=== PATIENT | female | born 1955 | race Caucasian/White ===

== ENCOUNTER 2017-06-07 17:11 | Observation (INO) ==
[2017-06-07] MEDS ORDERED: DUONEB (A & A) INH ONE (17:53)
[2017-06-07] MEDS ORDERED: ASPIRIN PO STA (17:53)
--- NOTE | 2017-06-07 18:24 | Diag Imaging Result Doc PS360 ---
EXAM: CHEST-PORTABLE HISTORY: CP TECHNIQUE: AP portable upright at 1805 COMMENT: The inspiration is less optimal than on 08/25/2016. Otherwise has been no significant change. IMPRESSION: Poor inspiration. No acute disease. Electronically signed by Kerwin Aguayo 06/07/2017 6:22 PM
[2017-06-07 18:32] LABS: MANUAL DIFF NEEDED? NO
[2017-06-07 18:36] LABS: BASO% 0.6 % (0.0-0.8); HEMATOCRIT 37.3 % (37.0-47.0); HEMOGLOBIN 12.4 g/dL (12.0-16.0); IMM GRAN# 0.06 X1000 (0.0-0.04); IMM GRAN% 0.4 % (0.0-0.5); LYMPH# 1.88 X1000 (1.2-3.4); MCH 31.6 PG (27-31); MCHC 33.2 g/dL (33-37); MCV 94.9 FL (81-99); MONO# 0.81 X1000 (0.11-0.59); MONO% 4.7 % (1.7-9.3); MPV 10.8 FL (7.4-10.4); NEUT% 83.3 % (42.2-75.2); PLT 306 X1000 (130-400); RBC 3.93 XMIL (4.2-5.4)
[2017-06-07 18:46] LABS: INR 0.98; PROTIME 10.3 Seconds (9.2-11.7); PTT 26.9 Seconds (22.0-36.0)
[2017-06-07 18:56] LABS: AGAP 10; ALBUMIN 3.6 g/dL (3.5-5.0); ALKALINE PHOSPHATASE 78 U/L (32-104); BUN 9 mg/dL (8-22); CALCIUM 8.3 mg/dL (8.8-10.2); CHLORIDE 103 mmol/L (98-107); CK PROFILE 55 U/L (24-173); COSMO 286; GOT 10 U/L (10-30); GPT 10 U/L (10-36); MAGNESIUM 1.7 mg/dL (1.5-2.7); POTASSIUM 3.8 mmol/L (3.5-5.1); SODIUM 140 mmol/L (136-145); TCO2 27 mmol/L (25-35); TOTAL BILIRUBIN 0.24 mg/dL (0.20-1.00); TOTAL PROTEIN 6.2 g/dL (6.3-8.3)
[2017-06-07] MEDS ORDERED: ROCEPHIN 1 GM/NS 1 GM/50 ML IVPB IV ONE (19:37)
[2017-06-07] MEDS ORDERED: SOLU-MEDROL IV ONE (19:37)
--- NOTE | 2017-06-07 19:39 | PROVIDER DOCUMENTATION ---
This chart was entered by Janneth Avalos Scribe, acting as scribe for Jake Villalba MD. HPI-Chest Pain - General Stated Complaint: SOB/CHEST PAIN Time Seen by Provider: 06/07/17 17:53 Source: patient Allergies/Adverse Reactions: Patient Allergies Allergy/AdvReac Type Severity Reaction Status Date / Time phenytoin sodium * Allergy Severe Unknown Verified 03/13/17 15:12 [From Dilantin] phenytoin sodium extended * Allergy Severe Unknown Verified 03/13/17 15:12 [From Dilantin] baclofen Allergy Unknown Verified 03/13/17 15:12 sulfamethoxazole Allergy NAUSEA/VOMI Verified 03/13/17 15:12 [From Bactrim] TING trimethoprim [From Bactrim] Allergy NAUSEA/VOMI Verified 03/13/17 15:12 TING Home Medications: Home Medication List Medication Instructions Recorded Confirmed Last Taken Type Estradiol 1 mg PO DAILY 04/18/14 03/13/17 08/25/16 History Furosemide 40 mg PO BID 04/18/14 03/13/17 08/25/16 History Insulin Lispro Protamin/Lispro 34 units SQ BID 04/18/14 03/13/17 08/24/16 History [Humalog Mix 75-25 Vial] Pregabalin [Lyrica] 150 mg PO TID 04/18/14 03/13/17 08/25/16 History Theophylline E.r. [Homero-Dur] 300 mg PO BID 04/18/14 03/13/17 08/25/16 History Tramadol HCl 50 mg PO TID 04/18/14 03/13/17 08/23/16 History Vitamin B Complex/Vit B12 [B 1 ml INJ DIRECTED 04/18/14 03/13/17 08/25/16 History Complex with B-12 Drops Sl] Albuterol [Albuterol Neb] 2.5 mg .SEE ORDER TID 12/10/14 03/13/17 08/24/16 History Clonazepam [Klonopin] 1 mg PO TID 12/10/14 03/13/17 08/25/16 History Oxycodone HCl/Acetaminophen 1 each PO 4XDAY PRN PRN 12/30/15 03/13/17 08/25/16 History [Percocet 10-325 mg Tablet] Sertraline [Zoloft] 50 mg PO DAILY 12/30/15 03/13/17 08/25/16 History Cholecalciferol (Vitamin D3) 1 cap PO DAILY 08/25/16 03/13/17 08/25/16 History [Vitamin D3] Flaxseed Oil [Flaxseed] 1 cap PO DAILY 08/25/16 03/13/17 08/25/16 History Freedom-3 Fatty Acids/Fish Oil [Fish 1 cap PO DAILY 08/25/16 03/13/17 08/25/16 History Oil 1,000 mg Softgel] Gabapentin [Neurontin] 300 mg PO TID 03/13/17 03/13/17 Unknown History - History of Present Illness-CP Nature of Presenting Problem: 61 yo F presents to the ER with complaint of CP, onset this morning. Pt states she has a hx of anxiety and panic attacks, this feels similar, has been under a lot more stress recently. Pt complains of chest tenderness. Denies n/v/d or SOB. Chest Pain Radiation: reports: no radiation Onset/Duration: this morning Timing: intermittent Associated Symptoms: denies: nausea, shortness of breath Review of Systems - Adult - REVIEW OF SYSTEMS - ADULT Constitutional: denies: chills, fever Eyes: reports: no symptoms reported Ears, Nose, Mouth & Throat: reports: no symptoms reported Cardiovascular: reports: chest pain. denies: palpitations Respiratory: denies: cough, shortness of breath Gastrointestinal: denies: diarrhea, nausea, vomiting Genitourinary: reports: no symptoms reported Musculoskeletal: reports: no symptoms reported Integumentary: reports: no symptoms reported Neurological: reports: no symptoms reported Psychiatric: reports: anxiety, panic attacks Endocrine: reports: no symptoms reported Hematologic/Lymphatic: reports: no symptoms reported Allergic/Immunologic: reports: no symptoms reported All Other Systems: Reviewed and Negative Past History - Adult - PAST MEDICAL HISTORY-ADULT Review of Records: reports: Nursing Assessment Review, Medications Reviewed Cardiovascular: reports: CHF, HTN Respiratory: reports: asthma, COPD Gastrointestinal: reports: GERD Musculoskeletal: reports: arthritis, chronic pain, fibromyalgia, other (DJD) Endocrine/Immune: reports: Diabetes - PRIOR SURGERIES/PROCEDURES Surgical/Procedure History: reports: cholecystectomy (Recent ERCP, cataract removal), hysterectomy, , hernia repair, orthopedic (extremity), other (Recent ERCP, cataract) - IMMUNIZATION STATUS Childhood Immunizations: See Nurse Assessment Flu Vaccine: See Nurse Assessment Physical Exam-General - PHYSICAL EXAM-ADULT Initial Vital Signs Reviewed: Yes - CONSTITUTIONAL General Appearance: alert, no apparent distress - EYES Eyes: PERRL/EOMI, pink conjunctivae - HEAD, EARS, NOSE, MOUTH & THROAT HENMT: normocephalic/atraumatic, normal ENT inspection, TMs normal, pharynx normal - NECK Neck: supple, normal inspection - RESPIRATORY Respiratory: no respiratory distress, no accessory muscle use, wheezing. negative: chest non-tender - CARDIOVASCULAR Cardiovascular: normal peripheral pulses, regular rate, rhythm - MUSCULOSKELETAL Back Exam: no CVA tenderness, no vertebral tenderness Extremity: normal gait, normal inspection - SKIN Integumentary: normal color, warm/dry - NEUROLOGIC Neurologic: grossly normal, no motor/sensory deficits - PSYCHIATRIC Psych/Mental Status: normal mood/affect, normal thought content, normal thought process, oriented x 3 Progress - PLAN OF CARE/RESULTS Progress/Plan/Lab Results: Vital Signs - 8 hr 06/07/17 18:39 Temperature 98.0 F Pulse Rate 88 Respiratory Rate 24 Blood Pressure 117/65 O2 Sat by Pulse Oximetry 96 Laboratory Results - last 24 hr 06/07/17 06/07/17 06/07/17 18:23 18:23 18:23 WBC 17.07 H RBC 3.93 L Hgb 12.4 Hct 37.3 MCV 94.9 MCH 31.6 H MCHC 33.2 RDW Std Deviation 13.3 Plt Count 306 MPV 10.8 H Immature Gran % (Auto) 0.4 Neut % (Auto) 83.3 H Lymph % (Auto) 11.0 L Haywood % (Auto) 4.7 Eos % (Auto) 0.0 Baso % (Auto) 0.6 Immature Gran # (Auto) 0.06 H Neut # (Auto) 14.22 H Lymph # (Auto) 1.88 Haywood # (Auto) 0.81 H Eos # (Auto) 0.00 Baso # (Auto) 0.10 PT INR PTT (Actin FS) Sodium 140 Potassium 3.8 Chloride 103 Carbon Dioxide 27 Anion Gap 10 BUN 9 Creatinine 0.6 Estimated GFR/1.73 m2 > 60 BUN/Creatinine Ratio 15 Glucose 247 H Calculated Osmolality 286 Calcium 8.3 L Magnesium 1.7 Total Bilirubin 0.24 AST 10 ALT 10 Alkaline Phosphatase 78 Creatine Kinase 55 Troponin T Rys-K-Tljzorqnwvu Pept 24 Total Protein 6.2 L Albumin 3.6 Globulin 2.6 Albumin/Globulin Ratio 1.4 06/07/17 06/07/17 18:23 18:23 WBC RBC Hgb Hct MCV MCH MCHC RDW Std Deviation Plt Count MPV Immature Gran % (Auto) Neut % (Auto) Lymph % (Auto) Haywood % (Auto) Eos % (Auto) Baso % (Auto) Immature Gran # (Auto) Neut # (Auto) Lymph # (Auto) Haywood # (Auto) Eos # (Auto) Baso # (Auto) PT 10.3 INR 0.98 PTT (Actin FS) 26.9 Sodium Potassium Chloride Carbon Dioxide Anion Gap BUN Creatinine Estimated GFR/1.73 m2 BUN/Creatinine Ratio Glucose Calculated Osmolality Calcium Magnesium Total Bilirubin AST ALT Alkaline Phosphatase Creatine Kinase Troponin T < 0.010 Ngs-F-Ukzvzmmicwr Pept Total Protein Albumin Globulin Albumin/Globulin Ratio Orders Category Date Time Status Cardiac Monitoring DIRECTED Care 06/07/17 17:53 Active Saline Loc NOW Care 06/07/17 17:53 Active CHEST-PORTABLE [RAD] Stat Exams 06/07/17 17:53 Completed CBC WITH ELECTRONIC DIFF [HEME] Stat Lab 06/07/17 18:23 Completed CK PROFILE [SP CHEM] Stat Lab 06/07/17 18:23 Completed COMPREHENSIVE METABOLIC PANEL [CHEM] Stat Lab 06/07/17 18:23 Completed MAGNESIUM [CHEM] Stat Lab 06/07/17 18:23 Completed PRO B-NATRIURETIC PEPTIDE Stat Lab 06/07/17 18:23 Completed PROTIME WITH INR [COAG] Stat Lab 06/07/17 18:23 Completed PTT [COAG] Stat Lab 06/07/17 18:23 Completed TROPONIN T Stat Lab 06/07/17 18:23 Completed Albuterol 2.5MG/Ipratrop 0.5MG [Duoneb (A & A)] Med 06/07/17 17:53 Discontinued 3 ml INH NOW ONE Aspirin Med 06/07/17 17:53 Discontinued 325 mg PO STAT STA Methylprednisolone Sod Succ [Solu-Medrol] Med 06/07/17 19:37 Once 125 mg IV NOW ONE Rocephin 1 gm/Ns IV Now Med 06/07/17 19:37 Ordered CefTRIAXONE 1 GM/NS [Rocephin 1 gm/Ns] 1 gm in 50 ml IV NOW Aerosol Treatments Routine Oth 06/07/17 17:54 Active Aerosol Treatments Stat Oth 06/07/17 17:54 Active Laboratory Tests 06/07/17 06/07/17 06/07/17 18:23 18:23 18:23 WBC 17.07 H RBC 3.93 L Hgb 12.4 Hct 37.3 MCV 94.9 MCH 31.6 H MCHC 33.2 RDW Std Deviation 13.3 Plt Count 306 MPV 10.8 H Immature Gran % (Auto) 0.4 Neut % (Auto) 83.3 H Lymph % (Auto) 11.0 L [place] % (Auto) 4.7 Eos % (Auto) 0.0 Baso % (Auto) 0.6 Immature Gran # (Auto) 0.06 H Neut # (Auto) 14.22 H Lymph # (Auto) 1.88 [place]wood # (Auto) 0.81 H Eos # (Auto) 0.00 Baso # (Auto) 0.10 PT INR PTT (Actin FS) Sodium 140 Potassium 3.8 Chloride 103 Carbon Dioxide 27 Anion Gap 10 BUN 9 Creatinine 0.6 Estimated GFR/1.73 m2 > 60 BUN/Creatinine Ratio 15 Glucose 247 H Calculated Osmolality 286 Calcium 8.3 L Magnesium 1.7 Total Bilirubin 0.24 AST 10 ALT 10 Alkaline Phosphatase 78 Creatine Kinase 55 Troponin T Ehk-P-Qoauohrtruc Pept 24 Total Protein 6.2 L Albumin 3.6 Globulin 2.6 Albumin/Globulin Ratio 1.4 06/07/17 06/07/17 18:23 18:23 WBC RBC Hgb Hct MCV MCH MCHC RDW Std Deviation Plt Count MPV Immature Gran % (Auto) Neut % (Auto) Lymph % (Auto) Haywood % (Auto) Eos % (Auto) Baso % (Auto) Immature Gran # (Auto) Neut # (Auto) Lymph # (Auto) Haywood # (Auto) Eos # (Auto) Baso # (Auto) PT 10.3 INR 0.98 PTT (Actin FS) 26.9 Sodium Potassium Chloride Carbon Dioxide Anion Gap BUN Creatinine Estimated GFR/1.73 m2 BUN/Creatinine Ratio Glucose Calculated Osmolality Calcium Magnesium Total Bilirubin AST ALT Alkaline Phosphatase Creatine Kinase Troponin T < 0.010 Esu-C-Lvuuqgwruun Pept Total Protein Albumin Globulin Albumin/Globulin Ratio Result Diagrams: 06/07/17 18:23 06/07/17 18:23 - EKG 1 Time of EKG reading by physician:: 17:33 EKG Read and Signed by:: Nunu Stewart EKG Interpretation (*Must complete 3 of following elements*): Abnormal Rate: 101 Rhythm: sinus tach with PAC with aberrant conduction [place]: normal QRS: normal MD Interval: normal ST Wave: normal - XRAY 1 XRAY Study: Chest Impression: Normal (poor inspiration, NAD. Per radiologist) - CONSULTS/PCP/HOSPITALIST Notification #1 *Consult/PCP/Hospitalist*: Dr Lira Time Discussed: 19:39 Consult Disposition: Will see in ED Departure - Departure Date of Disposition Decision: 06/07/17 Time of Disposition Decision: 19:38 DIAGNOSIS: COPD exacerbation, Unstable angina Disposition: ADMITTED INPATIENT 09 Certified Medical Emergency: Emergent Condition: Fair - Critical Care Note This patient required my direct & personal management of CC.: No This chart was documented by the indicated scribe, (Janneth Avalos Scribe) and accurately reflects the services I performed and decisions made by me, Jake Villalba MD, as attested by the provider's signature.
[2017-06-07] MEDS ORDERED: ULTRAM PO PRN (20:39)
[2017-06-07] MEDS ORDERED: TYLENOL PO PRN (20:41)
[2017-06-07 21:22] LABS: HEMOGLOBIN A1C 9.1 % (4.8-6.0)
[2017-06-07] MEDS: PATIENT'S OWN MED PO SCH (21:45)
[2017-06-07] MEDS ORDERED: LANTUS SUBQ ONE (22:30)
[2017-06-07] MEDS ORDERED: HUMALOG SUBQ ONE (22:30)
[2017-06-07] MEDS ORDERED: ZITHROMAX PO ONE (22:30)
[2017-06-07] MEDS: LASIX PO SCH (22:43)
[2017-06-07] MEDS: LOVENOX SUBQ SCH (22:44)
[2017-06-07] MEDS ORDERED: DUONEB (A & A) ONE ×2 (22:57→22:58)
--- NOTE | 2017-06-07 22:58 | HISTORY AND PHYSICAL ---
PATIENT OF: Dr. Lena Miranda, [place], [place]. over at office. HISTORY OF PRESENT ILLNESS: Ms. Shannon Lovealce is a 60-year-old lady with past medical history of COPD, reflux disease, diffuse arthritis, diabetes type 2, hypertension and questionable heart failure, probably diastolic. She comes in today complaining of a 12 hour history of substernal chest pain nonradiating, sharp with associated shortness of breath, nausea and dizziness. She says the pain is intermittent, worse with exertion and spontaneously resolved on its own. Also is aggravated when is anxious. Over the last few hours, she has been taking baby aspirins which have partially eased the pain. She denies any antecedent history of PND, orthopnea, lower extremity swelling or redness, fever, chills, polyuria, polydipsia. She denies any palpitations with this. Denies any diaphoresis with this. She says she is having intermittent cough which is dry and this is chronic in nature, however, but this has not worsened. She states that her exercise tolerance has decreased over the last 1-2 weeks. REVIEW OF SYSTEMS: Other than having occasional constipation, she denies any genitourinary or neurological complaints. She denies any new musculoskeletal complaints or rash. She is on home O2 by the way, and uses it continuously. No fever, no chills. ALLERGIES: Dilantin, Bactrim and baclofen. HOME MEDICATION: The most recent list was not available. However, she was taking the following medications: ProAir, DuoNeb, Klonopin 1 mg t.i.d., estradiol 1 mg daily, Lasix 40 mg b.i.d., Humalog 75-25, Percocet 10 mg tablets, Lyrica 150 mg tablet, Zoloft 50 mg daily , theophylline 30 mg b.i.d., tizanidine 4 mg b.i.d., tramadol 50 mg t.i.d., B complex. FAMILY HISTORY: Notable for colon cancer, heart disease, type 2 diabetes. SOCIAL HISTORY: She said she smokes about half a pack a day. No alcohol or illicit drug use. Lives with her boyfriend. SURGICAL HISTORY: Cholecystectomy, cataract surgery, hysterectomy, , hernia repair. LABORATORY WORK: Chest x-ray shows poor inspiratory effort, but otherwise grossly unchanged. White count 17,000. Patient does say she has been taking prednisone with this however for the last 2 weeks. Her last white count was 9000 in October. Hemoglobin and hematocrit 12 and 37, platelets 306,000, neutrophils 83%. Chemistry is only notable for a glucose of 247, calcium 8.3, magnesium 1.7. Troponin is negative. ProBNP is 24. PT PTT normal. D-dimer is pending. DIAGNOSTICS: EKG showed mild sinus bradycardia with no gross effusions consistent with ischemia. PHYSICAL EXAMINATION: GENERAL: Morbidly obese, middle-aged woman, who is chronically ill. VITAL SIGNS: Blood pressure is 117/65, heart rate 88, respirations 24, 98% on 2 L. HEENT: Head is normocephalic, atraumatic. Eyes, GIGI, EOMI. She is anicteric and not pale. ENT and oropharyngeal exam is grossly normal. NECK: Supple. No JVD or carotid bruit. No thyromegaly. LYMPH NODE: Exam is negative. CHEST: Decreased entry in both lung zaragoza with a few expiratory rhonchi. CARDIOVASCULAR: First and heart sounds heard. No gallops, murmurs or rubs. Rhythm is regular. Pulses distally in all extremities are good volume except in the distal lower extremities. They are both symmetrical, however. ABDOMINAL: Protuberant abdomen which is tender in the epigastrium, mildly tender in right upper quadrant area. No rebound or guarding. Bowel sounds hyperactive. No masses or organomegaly appreciated. RECTAL: Deferred at this time. EXTREMITIES: Trace edema in lower extremities. No clubbing or peripheral cyanosis. NEUROLOGIC: No focal deficits. SKIN: Intact. No breakdown lesions or erythema. MUSCULOSKELETAL: Grossly normal otherwise. ASSESSMENT: 1. Chest pain. Somewhat atypical for an ischemic etiology. Family history is notable for having heart disease. The patient also has type 2 diabetes, hypertension with obvious factors which put her in the moderate pre-probability risk. We will keep her nothing per oral and get Cardiology to see to determine if they want to stress her tomorrow. Also to rule out an alternative diagnosis for chest pain like a pulmonary embolus. She is obese. Per her records she uses estradiol tablets which increase the risk of pulmonary embolus. D- dimer ordered. If positive, we will proceed with CT angiogram. 2. Type 2 diabetes, uncontrolled. We will start her on Lantus and sliding scale. with SSI Humalog, she is not on any insulin sensitizing medication, and this needs to be discussed with the primary team. 3. Hypertension, stable. At least per her old records, not on any antihypertensives. Consider DEBORAH inhibitor or ARB if deemed necessary. 4. Chronic obstructive pulmonary disease. Continue with nebulizer treatments and we will give moderate doses of steroids. The patient does take chronic steroids and this may account for her leukocytosis the patient has no fever. She does in the renal old records have elevated white counts. I do not have anything suggestive from my standpoint of an infectious etiology. However, if she does spike a fever, a thoracic CT may be beneficial or if the CT angiogram is done, this may shed more light on this. 5. Reflux disease. Continue proton pump inhibitor or omeprazole as this may also account for her pain which is retrosternal and with epigastric tenderness. In the interim, the patient will be on aspirin, will be on Lovenox for DVT prophylaxis pending outstanding laboratory and/or imaging studies. cc: MD Neto Pham DO MTDD
[2017-06-08] MEDS: MORPHINE IV PRN ×3 (00:11→21:24)
[2017-06-08] MEDS: DUONEB (A & A) INH SCH ×4 (03:00→19:09)
--- NOTE | 2017-06-08 07:21 | EKG Report ---
Test Performed on : 06/08/2017 00:08:00 AM Test Reason : chest pain Blood Pressure : / mmHG Vent. Rate : 069 BPM Atrial Rate : 069 BPM P-R Int : 176 ms QRS Dur : 060 ms QT Int : 408 ms P-R-T Axes : 058 -05 043 degrees QTc Int : 437 ms Normal sinus rhythm. Low voltage QRS Borderline ECG When compared with ECG of 07-JUN-2017 17:33, (Unconfirmed) aberrant conduction. is no longer present Confirmed by Meenakshi Lira MD ([id number]) on 06/08/2017 12:27:35 PM
[2017-06-08 07:36] LABS: HDL 62 mg/dL (45-65); LDL 95 mg/dL; TRIGLYCERIDES 95 mg/dL (35-135); VLDL 19 mg/dL
[2017-06-08] MEDS: PATIENT'S OWN MED PO SCH ×2 (09:00→20:35)
[2017-06-08] MEDS ORDERED: NICODERM PATCH TD ONE (09:18)
[2017-06-08] MEDS: PRILOSEC PO SCH (09:30)
[2017-06-08] MEDS: ASPIRIN PO SCH (09:31)
[2017-06-08] MEDS: KLONOPIN PO SCH ×3 (09:32→16:15)
[2017-06-08] MEDS: LASIX PO SCH ×2 (09:33→20:35)
[2017-06-08] MEDS: SOLU-MEDROL IV SCH ×2 (09:35→21:23)
[2017-06-08] MEDS: ZITHROMAX PO SCH (09:36)
[2017-06-08] MEDS ORDERED: NICODERM PATCH ONE (09:43)
--- NOTE | 2017-06-08 09:48 | EKG Report ---
Test Performed on : 06/07/2017 5:33:16 PM Test Reason : HEDIP. Not ordered in [place] Blood Pressure : / mmHG Vent. Rate : 101 BPM Atrial Rate : 101 BPM P-R Int : 174 ms QRS Dur : 060 ms QT Int : 368 ms P-R-T Axes : 059 -01 043 degrees QTc Int : 477 ms Sinus tachycardia. with premature atrial complexes. with aberrant conduction. Otherwise normal ECG When compared with ECG of 25-AUG-2016 14:35, aberrant conduction. is now present Confirmed by Meenakshi Lira MD ([id number]) on 06/08/2017 12:27:33 PM
[2017-06-08] MEDS: HUMULIN R SUBQ SCH ×2 (16:15→21:23)
--- NOTE | 2017-06-08 18:43 | PROGRESS NOTE ---
DATE: 06/08/2017 SUBJECTIVE: Patient reports noticing chest pain on and off. It is thoracic. In the morning now she is pain free. Denies any fever or chills. OBJECTIVE: Vital Signs: Temperature 97.6 degrees, heart rate is 70, respiratory rate 14, blood pressure 109/54, O2 saturation 92% on room air. General Examination: This is a 60-year-old female, looking older than her age, lying in bed, in no acute distress. HEENT: Head is normocephalic, atraumatic. Anicteric sclerae and pale conjunctivae. Mucous membranes moist. Neck: Supple. No JVD noted. No carotid bruits. No lymphadenopathy. No thyromegaly. Cardiovascular: S1, S2 heard. No murmurs, gallops, or rubs. Regular rate and rhythm. Respiratory: Clear bilaterally to auscultation. No work of breathing or using accessory muscles. Abdomen: Soft, nontender to palpation. Bowel sounds present. No organomegaly. Decreased breath sounds globally with some scattered expiratory wheezing. No work of breathing or using accessory muscles. Abdomen: Soft, nontender to palpation. Nontender to palpation. Bowel sounds present. No organomegaly. Extremities: No clubbing, cyanosis, or edema. Peripheral pulses present in both legs. Neurological: Patient alert and oriented x3. Moves 4 extremities. Cranial nerves grossly normal. LABORATORY DATA: There are no labs from today. Troponins 3 sets have been completely negative. ASSESSMENT AND PLAN: 1. Chest pain. This pain is kind of typical. Because this patient has family history of heart disease that is why we decided to consult Cardiology and see if they plan to do any stress test or not. 2. Diabetes type 2. Not well controlled. Hemoglobin A1c is 9.1. We are going to start her on Lantus and sliding scale insulin. 3. Hypertension. Blood pressure is okay, actually in the range of 110 and 97. We are not going to start any medication at this time. 4. COPD. We will continue with nebulizations and oxygen. She is on home 3.5 L of oxygen. 5. Gastroesophageal reflux disease. We will continue with omeprazole. cc: Patel Weiner MD
[2017-06-08] MEDS: LOVENOX SUBQ SCH (20:34)
[2017-06-08] MEDS: ZOFRAN IV PRN (21:24)
--- NOTE | 2017-06-08 22:16 | Diag Imaging Result Doc PS360 ---
EXAM: CHEST-2 VIEWS HISTORY: chest discomfort, cough, leukocytosis TECHNIQUE: COMPARISON: None. FINDINGS: The lungs are well expanded. The heart is not enlarged. The vessels are not distended. There are no infiltrates. No pleural effusions. IMPRESSION: No pneumonia. Electronically signed by Eddie Tellez 06/08/2017 10:13 PM
[2017-06-09] MEDS: DUONEB (A & A) INH SCH ×4 (03:00→21:10)
--- NOTE | 2017-06-09 04:11 | CONSULTATION ---
DATE OF CONSULTATION: 06/08/2017 IMPRESSION: 1. Recurrent chest pressure suspicious for angina. The patient has significant risk factors for coronary disease including diabetes mellitus, hypertension and chronic ongoing cigarette use. Consider also the possibility of symptoms arising from exacerbation of chronic obstructive pulmonary disease or anxiety disorder. 2. Chronic obstructive pulmonary disease. 3. Diabetes mellitus type 2 requiring insulin for control. 4. Gastroesophageal reflux disease. RECOMMENDATIONS: 1. Given patient's clinical presentation, coronary risk profile, and limited utility in stress myocardial perfusion imaging, given her significant obesity and COPD limiting her ability to exercise or tolerate pharmacologic stress, it would appear best to pursue cardiac catheterization and selective coronary angiography. The rationale for this approach was discussed with the patient including potential hazards and she wished to proceed. 2. Echocardiography. 3. Smoking cessation strongly advised. HISTORY: This 60-year-old white female with past history of COPD, chronic ongoing cigarette use, type 2 diabetes mellitus requiring insulin for control, hypertension and CHF, was admitted for further evaluation of chest discomfort. She describes substernal chest discomfort characterized as a sensation of a ton of bricks sitting on her chest. Episodes might last 5-10 minutes and then recur. She describes some associated shortness of breath. She came to the emergency room by ambulance and was subsequently admitted. She is presently without chest discomfort. She has history of Anxiety/panic disorder and her family. Noted that she tends to get quite anxious when she experiences chest discomfort. She has continued to smoke at least a half pack cigarettes per day possibly more up until yesterday. There has been no orthopnea. She has chronic cough which is minimally productive. She is not aware of any fever. She recalls having previous evaluations for heart disease with what sounds like a pharmacologic stress myocardial perfusion study. She relates getting quite short of breath and having the study aborted. She had another type of pharmacologic stress study in [place], and relates that this study was felt to be negative. She had cannot recall having previous cardiac catheterization. PAST MEDICAL HISTORY: 1. COPD. 2. Hypertension. 3. Type 2 diabetes mellitus requiring insulin for control. 4. CHF, probably diastolic heart failure or cor pulmonale. 5. Hyperlipidemia. 6. Anxiety/panic disorder. PAST SURGICAL HISTORY: Cholecystectomy, cervical spine surgery, on 2 occasion, hysterectomy, left inguinal hernia repair, right total knee replacement, left total knee replacement, and right shoulder surgery. ALLERGIES: She is allergic or intolerant to Dilantin, Bactrim and baclofen. MEDICATIONS: Prior to admission as listed. SOCIAL HISTORY: She. Admits to smoking a half-pack a day but her family indicates she probably smokes more. She drinks a rare alcoholic beverage. FAMILY HISTORY: Positive for unspecified heart disease at older age with clinical onset. There is also family history of colon cancer and type 2 diabetes mellitus. REVIEW OF SYSTEMS: Pulmonary: Noteworthy for chronic exertional dyspnea and chronic cough. Gastrointestinal: Negative. Constitutional: Negative. The remainder of the review of systems negative/noncontributory with 14 total systems reviewed. PHYSICAL EXAMINATION: General: This is an obese, older white female with a somewhat barrel chest and no distress. Vital Signs: As recorded are stable. HEENT: Extraocular movements appear intact. Mucous membranes moist. Neck: Supple without discernible jugular venous distention. There are no carotid bruits. Chest: Auscultation of the chest reveals diminished breath sounds diffusely. No rales or wheezes can be appreciated. Cardiac Exam: Reveals a regular rate and rhythm without appreciable murmur or gallop. Abdomen: Soft, nontender. Bowel sounds normal. Extremities: Without edema. Neurologic: Exam reveals her to be alert, fully oriented. Speech is fluent. She moves all 4 extremities equally well. Skin: Warm and dry. Psychiatric: Reveals her mood to be appropriate. DIAGNOSTIC DATA: ECG demonstrates sinus rhythm, low voltage QRS. cc: Kameron Garibay MD
[2017-06-09] MEDS: HUMULIN R SUBQ SCH ×4 (06:10→20:26)
[2017-06-09] MEDS: PRILOSEC PO SCH (06:12)
[2017-06-09] MEDS: MORPHINE IV PRN ×3 (07:39→20:26)
[2017-06-09] MEDS ORDERED: VERSED ONE (08:49)
[2017-06-09] MEDS ORDERED: MORPHINE ONE (08:50)
[2017-06-09] MEDS ORDERED: ANESTHESIA PB SET 88 IN 5742 ONE (08:50)
[2017-06-09] MEDS ORDERED: HEPARIN 1000 UNITS/NS 2,000 UNIT/1,000 ML IV.SOLN ONE (08:50)
[2017-06-09] MEDS ORDERED: NS 1,000 ML ONE (08:50)
[2017-06-09] MEDS: ASPIRIN PO SCH (09:50)
[2017-06-09] MEDS: KLONOPIN PO SCH ×3 (09:51→16:34)
[2017-06-09] MEDS: PATIENT'S OWN MED PO SCH ×2 (09:51→20:29)
[2017-06-09] MEDS ORDERED: MAALOX PLUS LIQUID PO PRN (10:26)
[2017-06-09] MEDS: ZITHROMAX PO SCH (10:32)
[2017-06-09] MEDS: SOLU-MEDROL IV SCH ×2 (10:33→20:25)
[2017-06-09] MEDS: LASIX PO SCH ×2 (10:33→20:26)
[2017-06-09] MEDS: NS 1,000 ML IV SCH (10:34)
--- NOTE | 2017-06-09 13:37 | PROGRESS NOTE ---
DATE: 06/09/2017 SUBJECTIVE: Patient denies any chest pain at all. No fever or chills reported. OBJECTIVE: Vital Signs: Temperature 98.0 degrees, heart rate 76, respiratory rate 18, blood pressure 110/72, O2 saturation 97% on 2 L nasal cannula. General Examination: This is a 60-year- old female, looking older than her age, lying in bed in no acute distress. HEENT: Head is normocephalic, atraumatic. Neck: Supple. No JVD noted. Cardiovascular exam: S1, S2 heard. No murmurs, gallops, or rubs. Regular rate and rhythm. Respiratory exam: Clear bilaterally to auscultation with some scattered respiratory wheezing. Abdomen: Soft, nontender to palpation. Bowel sounds present. No organomegaly. Extremities: No clubbing, cyanosis, or edema. Peripheral pulses present in both legs. Neurological exam: Patient is alert and oriented x3. Moves 4 extremities. Cranial nerves 2-12 grossly normal. LABORATORY DATA: Reviewed. ASSESSMENT AND PLAN: 1. Chest pain. Patient has been evaluated by cardiology. They think because of family history and all current symptoms, she needs to have left heart catheterization that is going to be today. Disposition will depend upon the results of that exam. 2. Diabetes mellitus type 2. We will continue with the hemoglobin A1c at 9.1. Will continue with Lantus and sliding scale insulin. 3. Hypertension. Blood pressure is fine, so we are not going to change. We are not going to make any changes to her current treatment. 4. Chronic obstructive pulmonary disease. Patient is on nebulization of oxygen. 5. Gastroesophageal reflux disease. We will continue with omeprazole. cc: Patel Weiner MD
[2017-06-09] MEDS: ZOFRAN IV PRN ×2 (14:34→20:26)
[2017-06-09] MEDS ORDERED: NICODERM PATCH TD SCH (23:00)
--- NOTE | 2017-06-09 23:47 | CARDIAC CATH REPORT ---
PROCEDURE NAME: - PROCEDURE PERFORMED: Left heart catheterization with selective coronary angiography and left ventriculography. INDICATIONS: Recurrent chest discomfort suspicious for unstable angina in a patient with history of diabetes mellitus, chronic cigarette use, hypertension, and COPD. ENTRY SITE: Right femoral artery. CATHETERS USED: 5-Macedonian JL4, 3DRC, and angled pigtail. TECHNIQUE: After intravenous sedation with Versed and morphine, local anesthesia with lidocaine was applied over right femoral artery. Arterial access was established with placement of a 5- Macedonian sheath in the right femoral artery using modified Seldinger technique. Selective coronary angiography was performed followed by left heart catheterization and left ventriculography. Upon completion of procedure, arterial sheath was removed and hemostasis facilitated with manual pressure. The patient tolerated the procedure without apparent complications. FINDINGS: Hemodynamics: Aortic pressure 113/60 with a mean of 84, left ventricular pressure 123 over EDP of 14. Comments on hemodynamics: There is no significant gradient across the aortic valve demonstrated on pullback from left ventricle. ANGIOGRAPHY: 1. Left ventriculogram: The left ventricle is upper normal in size with estimated left ventricular ejection fraction of approximately 50%. No focal wall motion abnormalities are evident. There is no significant mitral regurgitation. 2. Left main coronary artery: The left main coronary artery is short and angiographically normal. 3. Left anterior descending coronary artery: The left anterior descending coronary artery and its branches are free of significant coronary stenosis. 4. Left circumflex coronary artery: The left circumflex coronary artery and its branches are free of significant coronary stenosis. 5. Right coronary artery: The dominant right coronary artery demonstrates a mild (10-20%) narrowing at midvessel. The remainder of the right coronary artery and its branches are free of significant coronary artery stenosis. CONCLUSIONS: 1. Estimated left ventricular ejection fraction approximately 50%. 2. Normal left ventricular end-diastolic filling pressures. 3. Right dominant coronary anatomy with very mild coronary atherosclerosis. RECOMMENDATIONS: 1. Consider alternative etiologies for patient's chest symptoms. 2. Continue efforts at coronary risk factor modification. 3. Medical management of patient's mild nonobstructive coronary disease. cc: Kameron Garibay MD
[2017-06-10] MEDS: DUONEB (A & A) INH SCH ×2 (03:40→09:27)
[2017-06-10] MEDS: NS 1,000 ML IV SCH ×2 (06:15→06:17)
[2017-06-10] MEDS: HUMULIN R SUBQ SCH (06:17)
[2017-06-10] MEDS: PRILOSEC PO SCH (06:17)
[2017-06-10] MEDS: ZOFRAN IV PRN (06:25)
[2017-06-10] MEDS: MORPHINE IV PRN (06:25)
[2017-06-10 07:56] LABS: MANUAL DIFF NEEDED? NO
[2017-06-10 07:59] LABS: BASO% 0.1 % (0.0-0.8); EOS# 0.01 X1000 (0.0-0.7); EOS% 0.1 % (0.0-10.0); HEMATOCRIT 35.9 % (37.0-47.0); HEMOGLOBIN 11.6 g/dL (12.0-16.0); IMM GRAN# 0.07 X1000 (0.0-0.04); IMM GRAN% 0.4 % (0.0-0.5); LYMPH# 2.51 X1000 (1.2-3.4); LYMPH% 13.9 % (20.5-51.1); MCH 31.3 PG (27-31); MCHC 32.3 g/dL (33-37); MCV 96.8 FL (81-99); MONO% 3.9 % (1.7-9.3); NEUT% 81.6 % (42.2-75.2); PLT 292 X1000 (130-400); RBC 3.71 XMIL (4.2-5.4)
[2017-06-10 08:18] LABS: AGAP 9; BUN 20 mg/dL (8-22); CALCIUM 8.3 mg/dL (8.8-10.2); CHLORIDE 101 mmol/L (98-107); COSMO 290; POTASSIUM 4.1 mmol/L (3.5-5.1); SODIUM 141 mmol/L (136-145); TCO2 31 mmol/L (25-35)
--- NOTE | 2017-06-10 08:22 | ECHO REPORT ---
ORDER DATE: 06/08/2017 REFERRING PHYSICIAN: Kameron Garibay MD INDICATION: Chest pain and shortness of breath. M-MODE MEASUREMENTS: Right ventricle: 2.2 cm. Left ventricle end diastole: 5.1 cm. Left ventricle end systole: 3.1 cm. Posterior wall: 1.1 cm. Interventricular septum: 1.1 cm. Left atrium: 4.1 cm. Aortic root: 3.4 cm. SUMMARY OF 2-DIMENSIONAL IMAGIN. Left ventricular function is normal. Ejection fraction is estimated at 66%. No wall motion abnormality is noted. No significant LVH. 2. The right ventricle is mildly enlarged. 3. The aortic valve is normal. Color flow mapping is unremarkable. 4. The mitral valve is normal. Color flow mapping is unremarkable. 5. Pulse wave Doppler of mitral inflow shows very mild reversal of the E and the A wave. 6. Tissue Doppler of septal and lateral mitral annulus averages 7.5 cm. 7. There is no diastolic dysfunction. 8. The tricuspid valve shows a [id number] degree of regurgitation. 9. The inferior vena cava is not dilated. 10.Pulmonary pressure is estimated at 43 mmHg. 11.The pulmonic valve is normal. Color flow mapping is unremarkable. 12.There is no pericardial effusion and no sign of thrombus. Clinical correlation is recommended. cc: MD Kameron Navarrete MD
[2017-06-10 08:30] VITALS: BP 113/62
[2017-06-10] MEDS: ASPIRIN PO SCH (08:30)
[2017-06-10] MEDS: SOLU-MEDROL IV SCH (08:30)
[2017-06-10] MEDS: PATIENT'S OWN MED PO SCH (08:31)
[2017-06-10] MEDS: KLONOPIN PO SCH (08:31)
[2017-06-10] MEDS: LASIX PO SCH (08:31)
[2017-06-10] MEDS: ZITHROMAX PO SCH (08:31)
--- NOTE | 2017-06-11 08:23 | DISCHARGE SUMMARY ---
ADMISSION DATE: 06/07/2017 DISCHARGE DATE: 06/10/2017 CONSULTATIONS: Dr. Kameron Garibay with cardiology. PERTINENT PROCEDURES: 1. Echocardiogram showed an EF of 66% with normal wall motion. 2. Chest x-ray that showed no pneumonia. 3. Left heart catheterization. This showed an estimated EF of 50%, normal LV end-diastolic filling pressures, right dominant coronary anatomy with very mild coronary atherosclerosis. DISCHARGE DIAGNOSES: 1. Chest pain. The patient has been evaluated by cardiology with left heart catheterization suggesting medical management of patient's mild nonobstructive coronary disease. Also, cardiac enzymes were negative. The patient is now chest pain-free. 2. Diabetes mellitus type 2, uncontrolled. Hemoglobin A1c was 9.1. 3. Hypertension. Continue with home medications. 4. Chronic obstructive pulmonary disease. Continue with home management. 5. Gastroesophageal reflux disease. Continue proton pump inhibitor. HOSPITAL COURSE: Ms. Lovelace is a 61-year-old female, who carries a past medical history of COPD, GERD, arthritis, diabetes mellitus type 2, hypertension, who came to the ED complaining of 12 hour history of substernal chest pain, nonradiating, sharp, associated with shortness of breath, nausea and dizziness. Stated the pain was intermediate, worse with exertion, spontaneously resolved on its own, aggravating when she was anxious. She did take baby aspirin which eased the pain. She does admit to an intermittent dry cough that is chronic in nature. Her exercise tolerance has decreased over the past 1-2 weeks. Initial chest x-ray shows poor inspiration effort, but otherwise grossly unchanged. Showed a white count of 17,000, but she had been taking prednisone for 2 weeks. Her hemoglobin and hematocrit was stable at 12 and 37. Chemistry is notable of blood glucose of 247. Troponins were negative. EKG showed mild sinus bradycardia. The patient was admitted for cardio workup. Her cardiac enzymes were trending and they were all negative. She had a cardiology consult, as well as an echocardiogram. Per cardiology given her clinical presentation, coronary risk profile, limited utility and stress myocardial perfusion imaging, and her significant obesity and COPD limiting her ability to exercise or tolerate pharmacological stress, their best option was to pursue cardiac catheterization with selective coronary angiography. She did undergo a left heart catheterization that showed an EF of 50%, normal LV end- diastolic filling pressures on the right, dominant coronary anatomy with very mild coronary atherosclerosis. Their recommendations were to continue alternative etiologies for patient's chest symptoms. Continue efforts at coronary risk factor modification, medical management of the patient's mild nonobstructive coronary disease. Throughout patient's hospital admission, she has been chest pain-free. She is appropriate for discharge today. She has been educated on diet and exercise, as well as smoking cessation. VITAL SIGNS AT TIME OF HER DISCHARGE: Temperature is 98.1 degrees, heart rate 60, respirations 16, blood pressure 132/60, O2 is 100%. DISCHARGE DIET: Diabetic. DISCHARGE MEDICATIONS: As per Dr. Perla: 1. Albuterol nebulizer 2.5 mg inhaled t.i.d. 2. ProAir 8.5 g inhaled q. 4 hours p.r.n. 3. Aspirin 81 mg p.o. daily. 4. Vitamin D 3 1000 units p.o. daily. 5. Klonopin 0.5 mg p.o. b.i.d. 6. Estradiol 1 mg p.o. daily. 7. Flaxseed 1000 mg p.o. daily. 8. Lasix 40 mg p.o. b.i.d. 9. Neurontin 300 mg p.o. t.i.d. 10. Humalog mix 75/25, 40 units subcutaneous b.i.d. 11. Levaquin 750 mg p.o. daily. 12. Fish oil 1000 mg p.o. daily. 13. Percocet 10/325, 1 each four times a day p.r.n. 14. Lyrica 150 mg p.o. t.i.d. 15. Zoloft 50 mg p.o. daily. 16. Homero-Dur 30 mg p.o. b.i.d. 17. Tramadol 50 mg p.o. t.i.d. 18. B complex with B 12 drops sublingual 1200 mcg per 1 mL, injected as directed. FOLLOW UP: The patient is being discharged home with [facility]. She lives with a friend. She does not drive. She does have home O2. The patient has been educated about a diabetic diet, as well as exercise and smoking cessation and the means to quit. The patient can return to the ED for any worsening of symptoms. DISCHARGE TIME: 33 minutes. Dictated by SAHRA Bautista for Patel Weiner MD cc: MD Neto Lowry, MTDD
--- NOTE | 2017-06-11 18:13 | Carotid Study ---
DATE: 06/09/2017 PROCEDURE: Bilateral duplex and color flow imaging of the carotid arteries was performed using a [employer] Vivid E9 ultrasound system and a 9L-D transducer. REFERRING PHYSICIAN: Dr. Garibay INTERPRETING PHYSICIAN: Dr. Valdes TECH: Graham INDICATIONS: Post cardiac catheterization. OBSERVED DATA RIGHT LEFT Brachial Blood Pressure Carotid Pulse Bruits: Carotid/Sub DIAGRAM OF ULTRASOUND IMAGING R L RIGHT INT EXT INT EXT LEFT Doroteo (cm/s) Doroteo (cm/s) Subclavian 71/0 Subclavian 72/0 CCA Proximal 82/16 CCA Proximal 86/19 CCA Distal 78/18 CCA Distal 61/23 Bulb 66/17 Bulb 52/15 ICA Proximal 47/10 ICA Proximal 61/12 ICA Mid 95/34 ICA Mid 67/21 ICA Distal 102/33 ICA Distal 100/32 ECA 128/15 ECA 78/10 Vertebral 37/15, antegrade flow Vertebral 55/19, antegrade flow ICA/CCA Ratio 1.24 ICA/CCA Ratio 1.15 % Stenosis 0-39% % Stenosis 0-39% FINDINGS: No hemodynamically significant flow-limiting stenosis noted to bilateral carotid arteries. Both vertebral arteries were antegrade flow. PHYSICIAN INTERPRETATION: No hemodynamically significant flow-limiting stenosis noted on this study to bilateral carotid arteries. Both vertebral arteries are antegrade flow. cc: MD Kameron Stallworth MD
--- NOTE | 2017-06-13 17:11 | CARDIAC CATH REPORT ---
PROCEDURE NAME: - PROCEDURE PERFORMED: Left heart catheterization with selective coronary angiography and left ventriculography. INDICATIONS: Recurrent chest discomfort suspicious for angina in patient with multiple risk factors for coronary disease. ENTRY SITE: Right femoral artery. CATHETERS USED: 5-Omani JL4, 3DRC, and angled pigtail. TECHNIQUE: After intravenous sedation with Versed and morphine, local anesthesia with lidocaine was applied over right femoral artery. Arterial access was established with placement of a 5- Omani sheath in right femoral artery using modified Seldinger technique. Selective coronary angiography was performed followed by left heart catheterization and left ventriculography. Upon completion of procedure, arterial sheath was removed and hemostasis facilitated with manual pressure. The patient tolerated the procedure without apparent complications. FINDINGS: Hemodynamics: Aortic pressure 113/60 with a mean of 84, left ventricular pressure 123 over EDP of 14. COMMENTS: On hemodynamics there is no significant gradient across aortic valve demonstrated on pullback from the left ventricle. ANGIOGRAPHY: 1. Left ventriculogram. The left ventricle is of normal size. Estimated left ejection fraction approximately 50%. No regional wall motion abnormalities are evident. There is no significant mitral regurgitation. 2. Left main coronary. The left main coronary artery is free of significant coronary stenosis. 3. Left anterior descending coronary. Left anterior descending coronary artery and its branches are free of significant coronary stenosis. 4. Left circumflex coronary. The left circumflex coronary artery and its branches are free of significant coronary stenosis. 5. Right coronary. The dominant right coronary artery demonstrates a very mildly (10-20%) focal narrowing after the proximal 1/3 of the vessel. 6. Incidental note is made of heavily calcified aortic arch. CONCLUSIONS: 1. Low normal left ventricular ejection fraction without wall motion abnormality evident. 2. Right dominant coronary anatomy with very mild atherosclerotic narrowing at midvessel in dominant right coronary artery. 3. Calcified aortic arch noted. RECOMMENDATIONS: 1. Medical management of patient's coronary atherosclerosis with antiplatelet therapy. 2. Coronary risk factor modification. cc: Kameron Garibay MD
== END 2017-06-10 11:20 | disposition home or self-care (01) ==
LOC: ED 17:11 → 3S 20:43 → OPS 20:43 → SUATTDRO 21:30 → INTOOBSV 21:30 → EDIPHOLD 21:30 → 3S 06-08 12:06 → DIRADM 06-08 12:10 → UNDODISOB 06-10 11:20
PROVIDERS: ADMIT Internal Medicine; ATTEND Internal Medicine

== ENCOUNTER 2018-11-30 15:29 | Inpatient (IN) ==
[2018-11-30] MEDS ORDERED: SOLU-MEDROL IV ONE (16:05)
[2018-11-30 16:22] LABS: BASO# 0.15 X1000 (0.0-0.2); BASO% 0.8 % (0.0-0.8); EOS# 0.14 X1000 (0.0-0.7); EOS% 0.7 % (0.0-10.0); HEMOGLOBIN 15.3 g/dL (12.0-16.0); IMM GRAN# 0.06 X1000 (0.0-0.04); IMM GRAN% 0.3 % (0.0-0.5); LYMPH# 4.43 X1000 (1.2-3.4); LYMPH% 22.8 % (20.5-51.1); MCH 29.9 PG (27-31); MCHC 33.3 g/dL (33-37); MCV 89.8 FL (81-99); MONO# 1.69 X1000 (0.11-0.59); MONO% 8.7 % (1.7-9.3); MPV 11.8 FL (7.4-10.4); NEUT# 12.93 X1000 (1.4-6.5); NEUT% 66.7 % (42.2-75.2); PLT 355 X1000 (130-400); RBC 5.12 XMIL (4.2-5.4); RDW 13.6 % (11.5-14.5)
--- NOTE | 2018-11-30 16:25 | Diag Imaging Result Doc PS360 ---
EXAM: CHEST-2 VIEWS 11/30/2018 HISTORY: shortness of breath TECHNIQUE: PA and lateral chest COMMENT: There is volume loss on the left with partial atelectasis of the left upper lobe. This was not present on 06/08/2017 and is highly suspicious for an postobstructive pneumonia/atelectasis due to an obstruction in the left upper lobe bronchus. IMPRESSION: Left upper lobe pneumonia with volume loss. Advise follow-up until clear. Electronically signed by Kerwin Aguayo 11/30/2018 4:23 PM
[2018-11-30 16:32] LABS: AGAP 14; ALBUMIN 3.3 g/dL (3.5-5.0); ALKALINE PHOSPHATASE 136 U/L (32-104); BUN 17 mg/dL (8-22); CALCIUM 8.7 mg/dL (8.8-10.2); CHLORIDE 99 mmol/L (98-107); COSMO 297; CREATININE 0.6 mg/dL (0.5-0.9); ESTIMATED GFR > 60; GLUCOSE 391 mg/dL (70-104); GOT 14 U/L (10-30); GPT 6 U/L (10-36); POTASSIUM 3.8 mmol/L (3.5-5.1); SODIUM 140 mmol/L (136-145); TCO2 28 mmol/L (25-35); TOTAL PROTEIN 6.3 g/dL (6.3-8.3)
[2018-11-30] MEDS ORDERED: DUONEB (A & A) INH ONE (17:14)
[2018-11-30] MEDS ORDERED: ZOSYN 3.375 GM in NS 50 ML IV ONE (17:24)
[2018-11-30] MEDS ORDERED: VANCOMYCIN 1 GM/NS 1 GM/250 ML IVPB IV ONE (17:25)
[2018-11-30 17:47] LABS: BE 6.3 mmoll (-3.0-3.0); BLOOD TYPE ARTERIAL; HCO3-(ACT) 29.4 mmoll (20.0-26.0); O2(CT) 17.8 mL/dL (15.0-23.0); PO2(98.6) 55 mmHg (60-100); SAMPLE BLOOD; SAO2 91.9 % (95.0-100.0); pH(98.6) 7.35 (7.35-7.45)
[2018-11-30 17:52] LABS: PCO2(98.6) 62 mmHg (35-45)
[2018-11-30 17:54] LABS: ALLEN TEST NO; MODALITY CANNULA; O2HB 84.5 % (95.0-99.0)
--- NOTE | 2018-11-30 18:19 | PROVIDER DOCUMENTATION ---
This chart was entered by Angeli Gale Scribe, acting as scribe for Radha Srivastava MD. HPI-Respiratory General - General Chief Complaint: Shortness of Breath Stated Complaint: SOB / BACK AND ARM PAIN Time Seen by Provider: 11/30/18 15:52 Source: patient, family (son) Allergies/Adverse Reactions: Patient Allergies Allergy/AdvReac Type Severity Reaction Status Date / Time phenytoin sodium * AdvReac Severe "makes me Verified 11/30/18 15:43 [From Dilantin] crazy" phenytoin sodium extended * AdvReac Severe "makes me Verified 11/30/18 15:43 [From Dilantin] crazy" baclofen AdvReac NAUSEA Verified 11/30/18 15:43 sulfamethoxazole AdvReac NAUSEA/VOMI Verified 11/30/18 15:43 [From Bactrim] TING trimethoprim [From Bactrim] AdvReac NAUSEA/VOMI Verified 11/30/18 15:43 TING Home Medications: Home Medication List Medication Instructions Recorded Confirmed Last Taken Type Estradiol 1 mg PO QAM 04/18/14 08/08/17 08/07/17 08:00 History Furosemide 40 mg PO BID 04/18/14 08/08/17 08/07/17 20:00 History Pregabalin [Lyrica] 150 mg PO TID 04/18/14 08/08/17 08/07/17 20:00 History Theophylline E.r. [Homero-Dur] 300 mg PO BID 04/18/14 08/08/17 08/07/17 20:00 History Tramadol HCl 50 mg PO TID 04/18/14 08/08/17 08/07/17 20:00 History Vitamin B Complex/Vit B12 [B 1 ml INJ DIRECTED 04/18/14 08/08/17 06/10/17 History Complex with B-12 Drops Sl] Albuterol [Albuterol Neb] 2.5 mg .SEE ORDER TID 12/10/14 08/08/17 08/07/17 20: 00 History Oxycodone HCl/Acetaminophen 1 each PO 4XDAY PRN PRN 12/30/15 08/08/17 06/10/17 History [Percocet 10-325 mg Tablet] Sertraline [Zoloft] 50 mg PO QAM 12/30/15 08/08/17 08/07/17 08:00 History Cholecalciferol (Vitamin D3) 1 cap PO QAM 08/25/16 08/08/17 08/07/17 08:00 History [Vitamin D3] Flaxseed Oil [Flaxseed] 1 cap PO QAM 08/25/16 08/08/17 08/07/17 08:00 History [place]-3 Fatty Acids/Fish Oil [Fish 1 cap PO QAM 08/25/16 08/08/17 08/07/17 08: 00 History Oil 1,000 mg Softgel] Gabapentin [Neurontin] 300 mg PO TID 03/13/17 08/08/17 08/07/17 20:00 History Albuterol Sulfate [Proair Hfa] 8.5 gm IH Q4H PRN PRN #1 hfa.aer.[email or web address] 06/10/1708/07/17 Rx Clonazepam [Klonopin] 0.5 mg PO BID #0 06/10/17 08/08/17 08/07/17 20:00 Rx Insulin Lispro Protamin/Lispro 40 units SQ BID #0 06/10/17 08/08/17 08/08/17 00: 10 Rx [Humalog Mix 75-25 Vial] Aspirin 81 mg PO QAM 08/08/17 08/08/17 08/07/17 08:00 History - History of Present Illness-Resp Nature of Presenting Problem: 62 yowf presents to the ed with c/o sob for 10 days. pt has been trying to treat at home with no relief. pt sts last neb tx 1230pm today Quality of Pain: reports: fullness Severity in ED: reports: moderate Onset/Duration: reports: other (10 days) Timing: reports: still present, getting worse Exposure: reports: unknown cause Cough Quality/Degree: reports: moderate, productive cough Episode Frequency: chronic episodes Current Respiratory Medication Therapy: Initiated see nurses note Modifying Factors: improves with: rest, sitting upright. worse with: exertion, lying down Associated Symptoms: reports: chest pain/soreness, cough, heart racing (127), hurts to breathe, shortness of breath, wheezing. denies: fever/chills, headache Similar Symptoms Previously?: Yes Recently seen or treated by another doctor?: No Review of Systems - Adult - REVIEW OF SYSTEMS - ADULT Constitutional: reports: see HPI, fatique. denies: chills, fever Eyes: reports: no symptoms reported Ears, Nose, Mouth & Throat: reports: no symptoms reported Cardiovascular: reports: see HPI, chest pain (hurts to breathe), palpitations ( 127) Respiratory: reports: see HPI, chronic cough, dyspnea on exertion, excessive sputum production, shortness of breath, wheezing Gastrointestinal: denies: diarrhea, nausea, vomiting Genitourinary: reports: no symptoms reported Musculoskeletal: denies: back pain, neck pain Integumentary: reports: no symptoms reported Neurological: denies: dizziness/vertigo, headache/migraines, slurred speech, syncope, tremors Psychiatric: reports: no symptoms reported Endocrine: reports: no symptoms reported Hematologic/Lymphatic: reports: no symptoms reported Allergic/Immunologic: reports: no symptoms reported All Other Systems: Reviewed and Negative Past History - Adult - PAST MEDICAL HISTORY-ADULT Review of Records: reports: Old Records Reviewed, Nursing Assessment Review, Medications Reviewed, Social history reviewed & non-contributory. Major Childhood Illnesses: reports: denies history Cardiovascular: reports: CHF, HTN Respiratory: reports: asthma, COPD Gastrointestinal: reports: GERD Obstetrical/Gynecological: reports: denies history Genitourinary: reports: denies history Musculoskeletal: reports: arthritis, chronic pain, fibromyalgia, other (DJD) Neurological: reports: denies history Endocrine/Immune: reports: Diabetes Diabetes Type: Type 2 Diabetes controlled by:: Insulin Dependent Other Conditions: reports: denies history - PRIOR SURGERIES/PROCEDURES Surgical/Procedure History: reports: cholecystectomy (Recent ERCP, cataract removal), hysterectomy, , hernia repair, orthopedic (extremity), other (Recent ERCP, cataract) - IMMUNIZATION STATUS Childhood Immunizations: See Nurse Assessment Flu Vaccine: See Nurse Assessment - FAMILY HISTORY Family History: reviewed, not pertinent - SOCIAL HISTORY Smoking: cigarettes, greater than 1 pack/day Provider spent 3-5 mins advising pt. on dangers of tobacco.: Discussed manners to quit use, and f/u contacts for add'l counseling. Substance Use: denies Alcohol Use Frequency: never Living Situation: family Physical Exam-General - PHYSICAL EXAM-ADULT Initial Vital Signs Reviewed: Yes - CONSTITUTIONAL General Appearance: alert, mild distress, obese - EYES Eyes: PERRL/EOMI, pink conjunctivae - HEAD, EARS, NOSE, MOUTH & THROAT HENMT: moist mucous membranes, dental decay - NECK Neck: full range of motion, supple, normal inspection - RESPIRATORY Respiratory: respiratory distress, decreased breath sounds, wheezing - CARDIOVASCULAR Cardiovascular: JVD, tachycardia (127) - GASTROINTESTINAL (ABDOMEN) Abdominal Exam: normal bowel sounds, non tender, soft - LYMPHATIC Lymphatic: no adenopathy - MUSCULOSKELETAL Back Exam: normal inspection, no CVA tenderness, no vertebral tenderness Extremity: normal range of motion, non-tender, normal inspection, no pedal edema , no calf tenderness, normal capillary refill, pelvis stable - SKIN Integumentary: normal color, normal turgor, warm/dry - NEUROLOGIC Neurologic: grossly normal, no motor/sensory deficits - PSYCHIATRIC Psych/Mental Status: normal mood/affect, normal thought content, normal thought process, oriented x 3 Progress - PLAN OF CARE/RESULTS Progress/Plan/Lab Results: Vital Signs - 8 hr 11/30/18 15:38 11/30/18 17:11 11/30/18 17:28 Temperature 97.9 F Pulse Rate 127 H 103 H 106 H Respiratory Rate 24 22 20 Blood Pressure 142/93 103/55 O2 Sat by Pulse Oximetry 87 L 93 L 94 L Laboratory Results - last 24 hr 11/30/18 11/30/18 11/30/18 16:02 16:02 16:02 WBC 19.40 H RBC 5.12 Hgb 15.3 Hct 46.0 MCV 89.8 MCH 29.9 MCHC 33.3 RDW Std Deviation 13.6 Plt Count 355 MPV 11.8 H Immature Gran % (Auto) 0.3 Neut % (Auto) 66.7 Lymph % (Auto) 22.8 Waldo % (Auto) 8.7 Eos % (Auto) 0.7 Baso % (Auto) 0.8 Immature Gran # (Auto) 0.06 H Neut # (Auto) 12.93 H Lymph # (Auto) 4.43 H Waldo # (Auto) 1.69 H Eos # (Auto) 0.14 Baso # (Auto) 0.15 Sodium 140 Potassium 3.8 Chloride 99 Carbon Dioxide 28 Anion Gap 14 BUN 17 Creatinine 0.6 Estimated GFR/1.73 m2 > 60 BUN/Creatinine Ratio 28 Glucose 391 H Calculated Osmolality 297 Calcium 8.7 L Total Bilirubin 0.20 AST 14 ALT 6 L Alkaline Phosphatase 136 H Total Protein 6.3 Albumin 3.3 L Globulin 3.0 Albumin/Globulin Ratio 1.0 Plasma Lactate 1.9 Orders Category Date Time Status Cardiac Monitoring DIRECTED Care 11/30/18 15:53 Active IV Insertion ORDERED Care 11/30/18 15:53 Completed Oxygen Therapy- ED Nursing DIRECTED Care 11/30/18 15:54 Active Use ED:PneumoniaAdultSet As Ordered Care 11/30/18 15:50 Active CHEST-2 VIEWS [RAD] Stat Exams 11/30/18 15:50 Completed ABG [RESP] Routine Lab 11/30/18 17:13 Ordered BLOOD CULTURE [BLDCUL] Stat Lab 11/30/18 16:36 Results CBC WITH ELECTRONIC DIFF [HEME] Stat Lab 11/30/18 16:02 Completed COMPREHENSIVE METABOLIC PANEL [CHEM] Stat Lab 11/30/18 16:02 Completed LACTATE, PLASMA [CHEM] Stat Lab 11/30/18 16:02 Completed Albuterol 2.5MG/Ipratrop 0.5MG [Duoneb (A & A)] Med 11/30/18 17:14 Discontinued 3 ml INH NOW ONE Methylprednisolone Sod Succ [Solu-Medrol] Med 11/30/18 16:05 Discontinued 125 mg IV NOW ONE Piperacillin/Tazobactam [Zosyn] 3.375 gm Med 11/30/18 17:24 Active 0.9% Sodium Chloride Inj [Ns] 50 ml IV NOW Vancomycin 1 gm/Ns Med 11/30/18 17:25 Active 1 gm in 250 ml IV NOW Aerosol Treatments Routine Oth 11/30/18 17:14 Active Aerosol Treatments Stat Oth 11/30/18 17:14 Active Pneumonia (suspected) Stat Oth 11/30/18 15:49 Ordered Result Diagrams: 11/30/18 16:02 11/30/18 16:02 - REASSESSMENT Reassessment #1 Time Reassessed: 16:07 Status: unchanged Reassessment #2 Time Reassessed: 17:10 Status: improving Reassessment Comment: pt has mild improvement post neb tx Reassessment #3 Time Reassessed: 17:45 Status: unchanged Reassessment Comment: hospice nurse at bedside speaking with dr jes NEWTON 1 XRAY: Bilateral XRAY Study: Chest (EXAM: CHEST-2 VIEWS 11/30/2018 HISTORY: shortness of breath TECHNIQUE: PA and lateral chest COMMENT: There is volume loss on the left with partial atelectasis of the left upper lobe. This was not present on 2016 and is highly suspicious for an postobstructive pneumonia/atelectasis due to an obstruction in the left upper lobe bronchus. IMPRESSION: Left upper lobe pneumonia with volume loss. Advise follow-up until clear. Electronically signed by Kerwin Aguayo 11/30/2018 4:23 PM 11/30/18 1623 Interpreting Physician: Kerwin Aguayo MD Dictated Date/Time: 11/30/18 1622 cc: Radha Srivastava MD; None,PCP) - CONSULTS/PCP/HOSPITALIST Notification #1 *Consult/PCP/Hospitalist*: hospitalist dr espinoza Reason/Comments: pneumonia Consult Disposition: Admit Departure - Departure Date of Disposition Decision: 11/30/18 Time of Disposition Decision: 17:44 DIAGNOSIS: COPD exacerbation Pneumonia Qualifiers: Pneumonia type: due to unspecified organism Laterality: unspecified laterality Lung location: unspecified part of lung Qualified Code(s): J18.9 - Pneumonia, unspecified organism Disposition: ADMITTED INPATIENT 09 Certified Medical Emergency: Emergent Condition: Stable Referrals and Follow-Ups: None,PCP [Primary Care Provider] - - Critical Care Note This patient required my direct & personal management of CC.: Yes Total Time (mins): 43 Critical Care Statement: This patient required my direct personal management to treat or rule out processes, the absence of which, could potentiallly result in sudden, clinically significant life or limb threatening deterioration. Attestation - Physician/ RAFAEL Attestation Patient care was provided by Advanced Practice Provider:: No The physician spent face to face time with patient:: Yes Advanced Practice Provider documentation review:: Supervising physician onsite and consulted in the evaluation and care of this patient. The physician did have a face to face encounter with the patient. This chart was documented by the indicated scribe, (Angeli Gale Scribe) and accurately reflects the services I performed and decisions made by me, Radha Srivastava MD, as attested by the provider's signature.
[2018-11-30] MEDS ORDERED: ZOFRAN IV PRN (18:20)
[2018-11-30] MEDS: MORPHINE IV PRN ×2 (19:39→23:06)
[2018-11-30] MEDS ORDERED: VANCOMYCIN IV PER PHARMACY MISC SCH (20:00)
[2018-11-30] MEDS ORDERED: VANCOMYCIN 500 MG/NS 500 MG/100 ML IVPB IV ONE ×2 (21:00→23:00)
[2018-11-30] MEDS ORDERED: DUONEB (A & A) INH PRN (22:26)
[2018-11-30] MEDS: NS 1,000 ML IV SCH (23:05)
[2018-11-30] MEDS: ZOSYN 3.375 GM in NS 50 ML IV SCH (23:06)
[2018-11-30] MEDS: HUMALOG DOSE (PARKWAY) SUBQ SCH (23:11)
[2018-11-30] MEDS: DUONEB (A & A) INH SCH (23:30)
[2018-11-30] MEDS: SOLU-MEDROL IV SCH (23:50)
--- NOTE | 2018-12-01 00:08 | HISTORY AND PHYSICAL ---
PRIMARY CARE PHYSICIAN: Dr. Daniel Wall. CHIEF COMPLAINT: Shortness of breath, cough x10 days. HISTORY OF PRESENT ILLNESS: This is a 62-year-old female with a history of COPD , ongoing cigarette use, hypertension, congestive heart failure and diabetes type 2. She presents to the emergency room complaining of 10 days of cough, shortness of breath, back pain and wheezing. She states that this came on slowly. She has tried [id number] medications with no relief. Chest x-ray revealed left upper lobe pneumonia that is highly suspicious for postobstructive pneumonia due to an obstruction of left upper bronchus. She is being admitted for further evaluation and treatment. PAST MEDICAL HISTORY: 1. COPD. 2. Hypertension. 3. Diabetes type 2 with insulin. 4. Congestive heart failure with an EF of 60% in May 2017. 5. Hyperlipidemia. 6. Ongoing tobacco use. 7. Anxiety and panic disorder. PAST SURGICAL HISTORY: Cholecystectomy, cervical spine surgery, , hysterectomy, left inguinal hernia repair, right total knee replacement, left total knee replacement, right shoulder surgery. ALLERGIES: Dilantin, baclofen and Bactrim. HOME MEDICATIONS: A list will be obtained by the nursing staff and once verified we will review and continue as appropriate. REVIEW OF SYSTEMS: Discussed with patient with pertinent positives stated in the HPI. She denied any syncope, dizziness, any palpitations, any chest pain, any hemoptysis, any nausea, vomiting, diarrhea, constipation, black or bloody vomitus or stools, any hematuria, dysuria, frequency, urgency. PHYSICAL EXAMINATION: GENERAL: This is a 62-year-old female who is sitting up in the stretcher in the emergency room in no distress. VITAL SIGNS: Blood pressure is 104/75, heart rate of 93, respirations are 18, temperature was 97.9 degrees with O2 saturation 93-95% on 3 L nasal cannula. EYES: Pupils are equal, round, react to light. EOMs are intact. Sclerae are anicteric. HEENT: Head is normocephalic, atraumatic. Mucous membranes are moist. NECK: Supple with trachea midline. She has no lower extremity edema with peripheral pulses palpable x4 extremities. PULMONARY: Breath sounds with wheezes scattered throughout, rhonchi that do not clear completely to cough. Chest rises and falls symmetrically with respiration. She has no increased work of breathing at present. GASTROINTESTINAL: Abdomen is soft, nontender, nondistended with bowel sounds in all 4 quadrants. GENITOURINARY: No CVA nor suprapubic tenderness. NEUROLOGIC: She is alert and oriented x3. SKIN: Warm and dry. LABS: WBC is 19.4 with hemoglobin 15.3, hematocrit 46 and platelets of 355, 000. Sodium is 140, potassium 3.8, BUN 17, creatinine 0.6 with a glucose of 391. ABGs, pH 7.3 with a pCO2 of 62, PO2 of 55, bicarb of 29. Chest x-ray reveals left upper lobe pneumonia suspicious for postobstructive due to an obstruction in the left upper bronchus. Blood cultures are pending. ASSESSMENT AND PLAN: 1. Left upper lobe pneumonia, most likely postobstructive secondary to an obstruction in left bronchus. 2. Hypercapnic hypoxic respiratory failure. 3. Leukocytosis. 4. Hypertension. 5. Diabetes mellitus type 2 with hyperglycemia. 6. Congestive heart failure with an EF of 66% in May of 2017. 7. Tobacco use and abuse. 8. Chronic pain. PLAN: The patient will be admitted to ICU for close monitoring. We will give supplemental oxygen, give DuoNeb q.4 hours and q.2 hours p.r.n., incentive spirometer and Acapella with steroids to taper. gentle hydration. sputum specimen and blood cultures are pending. Antibiotic coverage of vancomycin and Zosyn with further antibiotics being culture driven. pattern blood glucose with sliding scale insulin. a diabetic diet. morphine for pain. DVT prophylaxis, we will use Lovenox and GI prophylaxis, Protonix. Further treatments pending hospital course. Dictated by SAHRA Cano for Joey Hughes MD This chart was documented by, SAHRA Cano and accurately reflects the services performed, treatment plan and medical decisions as attested by the providers signature Joey Hughes MD. cc: SAHRA Cano MD [facility]
--- NOTE | 2018-12-01 02:11 | HISTORY AND PHYSICAL ---
ADDENDUM: Patient seen and examined by myself. Full note dictated and discussed with nurse practitioner. Patient presented to the hospital with increased cough, congestion, increased shortness of breath, increased work of breathing. She appears to have pneumonia and a COPD exacerbation. We will admit to the hospital, treat her in the usual fashion, place her on antibiotics, breathing treatments and we will follow. cc: Joey Hughes MD
[2018-12-01] MEDS: DUONEB (A & A) INH SCH ×5 (04:00→19:49)
[2018-12-01] MEDS: ZOSYN 3.375 GM in NS 50 ML IV SCH ×4 (05:17→22:55)
[2018-12-01] MEDS: NICODERM PATCH TD PRN ×2 (06:29→20:48)
[2018-12-01] MEDS: MORPHINE IV PRN ×3 (06:29→20:35)
--- NOTE | 2018-12-01 06:54 | Diag Imaging Result Doc PS360 ---
EXAM: CHEST-PORTABLE HISTORY: hypoxia TECHNIQUE: Portable chest single view COMPARISON: 11/30/2018 FINDINGS: There are infiltrates and/or atelectasis in the lower left lung. There is also small left pleural effusion. Right lung is well expanded. Mild increased interstitial markings believed to represent mild vascular distention. IMPRESSION: Persistent lower left infiltrate and atelectasis Electronically signed by Eddie Tellez 12/01/2018 6:52 AM
[2018-12-01] MEDS: HUMALOG DOSE (PARKWAY) SUBQ SCH ×4 (06:55→20:58)
[2018-12-01] MEDS ORDERED: VANCOMYCIN IV PER PHARMACY MISC SCH (07:00)
[2018-12-01 07:01] LABS: HEMATOCRIT 42.2 % (37.0-47.0); HEMOGLOBIN 13.6 g/dL (12.0-16.0); MCH 29.4 PG (27-31); MCHC 32.2 g/dL (33-37); MCV 91.3 FL (81-99); MPV 11.7 FL (7.4-10.4); RBC 4.62 XMIL (4.2-5.4); RDW 13.5 % (11.5-14.5); WBC 11.66 X1000 (4.8-10.8)
[2018-12-01 07:26] LABS: AGAP 11; ALBUMIN 2.9 g/dL (3.5-5.0); ALKALINE PHOSPHATASE 108 U/L (32-104); BUN 18 mg/dL (8-22); CALCIUM 8.7 mg/dL (8.8-10.2); CHLORIDE 101 mmol/L (98-107); COSMO 291; CREATININE 0.5 mg/dL (0.5-0.9); ESTIMATED GFR > 60; GLUCOSE 246 mg/dL (70-104); GOT 10 U/L (10-30); GPT 6 U/L (10-36); MAGNESIUM 1.4 mg/dL (1.5-2.7); POTASSIUM 3.5 mmol/L (3.5-5.1); SODIUM 141 mmol/L (136-145); TCO2 29 mmol/L (25-35); TOTAL PROTEIN 5.9 g/dL (6.3-8.3)
[2018-12-01] MEDS ORDERED: LASIX PO SCH (09:00)
[2018-12-01] MEDS: SOLU-MEDROL IV SCH ×3 (09:06→22:55)
[2018-12-01] MEDS: PERCOCET-10 PO PRN ×2 (09:06→22:55)
[2018-12-01] MEDS: VITAMIN D PO SCH (09:07)
[2018-12-01] MEDS: FISH OIL CONCENTRATE PO SCH (09:07)
[2018-12-01] MEDS: ASPIRIN PO SCH (09:07)
[2018-12-01] MEDS: NEURONTIN PO SCH ×3 (09:07→16:32)
[2018-12-01] MEDS: KLONOPIN PO PRN (09:11)
[2018-12-01] MEDS: THEO-DUR PO SCH ×2 (12:52→20:44)
[2018-12-01] MEDS: ESTRACE PO SCH (13:39)
[2018-12-01] MEDS: NS 1,000 ML IV SCH (16:33)
[2018-12-01] MEDS: VANCOMYCIN 1,200 MG in NS 250 ML IV SCH (17:32)
[2018-12-01] MEDS: LYRICA PO SCH (20:40)
[2018-12-01] MEDS: LASIX PO SCH (20:40)
[2018-12-01] MEDS: ZOLOFT PO SCH (20:40)
[2018-12-02] MEDS: DUONEB (A & A) INH SCH ×7 (00:23→23:19)
--- NOTE | 2018-12-02 04:07 | PROGRESS NOTE ---
DATE: 12/01/2018 SUBJECTIVE: Patient states that she is starting to feel better. Denies any chest pain or palpitations. States she is still having a cough, but much less productive. PHYSICAL EXAMINATION: Vital Signs: Temperature 97.7 degrees, pulse 78, respiratory 20, BP 108/54. General: Patient is awake, alert, currently in mild respiratory distress but improving. HEENT: Normocephalic. Neck: Supple. CARDIOVASCULAR: Regular rate. Chest: Clear. Abdomen: Soft. ASSESSMENT: 1. Left upper lobe pneumonia with questionable postobstruction. 2. Hypercapnic respiratory failure. 3. Diabetes. 4. Congestive heart failure, diastolic. 5. Chronic tobacco abuse. PLAN: We will continue patient in the hospital. Continue antibiotics, Solu-Medrol, breathing treatments, oxygen and we will follow. cc: Joey Hughes MD
[2018-12-02] MEDS: ZOSYN 3.375 GM in NS 50 ML IV SCH ×4 (05:45→23:05)
[2018-12-02] MEDS ORDERED: FLU VACCINE IM ONE (06:00)
[2018-12-02] MEDS ORDERED: PNEUMOVAX 23 IM ONE (06:00)
[2018-12-02] MEDS: NS 1,000 ML IV SCH ×2 (06:15→19:54)
[2018-12-02] MEDS: HUMALOG DOSE (PARKWAY) SUBQ SCH ×4 (06:19→21:15)
[2018-12-02] MEDS ORDERED: NEO-SYNEPHRINE 50 MG in NS 250 ML IV SCH (07:30)
[2018-12-02] MEDS: VITAMIN D PO SCH (08:37)
[2018-12-02] MEDS: NEURONTIN PO SCH ×3 (08:37→16:08)
[2018-12-02] MEDS: PERCOCET-10 PO PRN (08:37)
[2018-12-02] MEDS: ASPIRIN PO SCH (08:38)
[2018-12-02] MEDS: SOLU-MEDROL IV SCH ×3 (08:38→23:05)
[2018-12-02] MEDS: NICODERM PATCH TD PRN (08:38)
[2018-12-02] MEDS: THEO-DUR PO SCH ×2 (08:38→21:03)
[2018-12-02] MEDS: ESTRACE PO SCH (08:38)
[2018-12-02] MEDS: LASIX PO SCH ×2 (08:38→19:53)
[2018-12-02] MEDS: FISH OIL CONCENTRATE PO SCH (08:38)
[2018-12-02] MEDS: TYLENOL PO PRN ×2 (10:12→21:02)
[2018-12-02] MEDS: VANCOMYCIN 1,200 MG in NS 250 ML IV SCH (10:24)
[2018-12-02] MEDS: KLONOPIN PO PRN ×2 (13:27→23:10)
[2018-12-02] MEDS: MORPHINE IV PRN ×2 (14:28→21:00)
[2018-12-02] MEDS: LYRICA PO SCH (21:03)
[2018-12-02] MEDS: ZOLOFT PO SCH (21:03)
--- NOTE | 2018-12-03 02:21 | PROGRESS NOTE ---
DATE: 12/02/2018 SUBJECTIVE: Patient notes that she is feeling a lot better. Denies any chest pain. Denies palpitations. States her cough and congestion are improving. Denies any dysuria. No frequency. PHYSICAL EXAMINATION: Vital Signs: Temperature 98 degrees, pulse 82, respiratory 24, BP 86/42. General: Patient is awake, alert. She is very pleasant to talk with. HEENT: Normocephalic. Neck: Supple. CARDIOVASCULAR: Regular rate. No murmurs. Chest: Decreased breath sounds. Positive wheezing. Good air movement bilaterally and equal. Mildly labored. Abdomen: Soft, nondistended. Extremities: Moves all extremities. ASSESSMENT: 1. Left upper lobe pneumonia. 2. Hypercapnic respiratory failure, improved. 3. Leukocytosis. 4. Diabetes. 5. Congestive heart failure. 6. Chronic tobacco abuse. PLAN: We will continue patient in the hospital. Continue Solu-Medrol at 60 IV q.8. Continue antibiotics, breathing treatments, oxygen and we will follow. cc: Joey Hughes MD
[2018-12-03] MEDS: ZOSYN 3.375 GM in NS 50 ML IV SCH ×3 (04:30→16:41)
[2018-12-03] MEDS: VANCOMYCIN 1,200 MG in NS 250 ML IV SCH ×2 (05:30→17:09)
[2018-12-03] MEDS: HUMALOG DOSE (PARKWAY) SUBQ SCH ×3 (06:17→15:27)
[2018-12-03] MEDS: DUONEB (A & A) INH SCH ×6 (06:18→23:53)
[2018-12-03] MEDS: MORPHINE IV PRN ×3 (06:21→20:02)
[2018-12-03] MEDS: SOLU-MEDROL IV SCH ×2 (07:57→15:21)
[2018-12-03] MEDS: LASIX PO SCH ×2 (07:57→20:01)
[2018-12-03] MEDS: NICODERM PATCH TD PRN (08:07)
[2018-12-03] MEDS: NEURONTIN PO SCH ×3 (08:33→16:40)
[2018-12-03] MEDS: THEO-DUR PO SCH ×2 (08:33→20:01)
[2018-12-03] MEDS: ESTRACE PO SCH (08:33)
[2018-12-03] MEDS: VITAMIN D PO SCH (08:34)
[2018-12-03] MEDS: FISH OIL CONCENTRATE PO SCH (08:34)
[2018-12-03] MEDS: ASPIRIN PO SCH (08:34)
[2018-12-03] MEDS: TYLENOL PO PRN (09:06)
[2018-12-03] MEDS: HUMALOG MIX 75/25 SUBQ SCH ×2 (11:45→16:42)
[2018-12-03 12:26] LABS: HEMATOCRIT 35.9 % (37.0-47.0); HEMOGLOBIN 11.5 g/dL (12.0-16.0); MCH 29.4 PG (27-31); MCV 91.8 FL (81-99); MPV 11.1 FL (7.4-10.4); RBC 3.91 XMIL (4.2-5.4); RDW 13.8 % (11.5-14.5); WBC 21.24 X1000 (4.8-10.8)
[2018-12-03 12:29] LABS: AGAP 19; ALBUMIN 2.8 g/dL (3.5-5.0); ALKALINE PHOSPHATASE 87 U/L (32-104); BUN 19 mg/dL (8-22); CALCIUM 7.6 mg/dL (8.8-10.2); CHLORIDE 98 mmol/L (98-107); COSMO 297; CREATININE 0.6 mg/dL (0.5-0.9); ESTIMATED GFR > 60; GLUCOSE 181 mg/dL (70-104); GOT 9 U/L (10-30); GPT 6 U/L (10-36); POTASSIUM 3.1 mmol/L (3.5-5.1); SODIUM 146 mmol/L (136-145); TCO2 29 mmol/L (25-35); TOTAL PROTEIN 5.7 g/dL (6.3-8.3)
[2018-12-03] MEDS: KLONOPIN PO PRN ×2 (13:04→21:17)
[2018-12-03] MEDS: NS 1,000 ML IV SCH (16:41)
[2018-12-03] MEDS: ZOLOFT PO SCH (20:01)
[2018-12-03] MEDS: LYRICA PO SCH (20:02)
[2018-12-03] MEDS ORDERED: BLISTEX MEDICATED BERRY LIP BALM TOP ONE (22:19)
--- NOTE | 2018-12-04 00:16 | PROGRESS NOTE ---
DATE: 12/03/2018 SUBJECTIVE: Patient has no new complaints. States that she is feeling better. Would like to move to the floor to be able to ambulate better. PHYSICAL EXAMINATION: Vital Signs: Temperature 98.2 degrees, pulse 89, respiratory 20, BP 103/54. General: Patient is awake, alert. Currently she is in no respiratory distress. HEENT: Normocephalic. Neck: Supple. Cardiovascular: Regular rate. No murmurs. Chest: Clear, nonlabored. Abdomen: Soft, nondistended. Extremities: Moves all extremities. ASSESSMENT: 1. Left upper lobe pneumonia, improving. 2. Hypercapnic and hypoxic respiratory failure, improving. 3. Chronic obstructive pulmonary disease with exacerbation, improving. 4. Chronic tobacco abuse. 5. Diabetes. 6. Hypertension. PLAN: Overall, patient is improving. We will decrease Solu-Medrol to 40 IV q.8. This should help with blood sugar control. We will continue Zosyn. We will move her to the floor. Hopefully she can begin ambulating and discharge home soon. cc: Joey Hughes MD
[2018-12-04] MEDS: PERCOCET-10 PO PRN ×2 (00:47→11:53)
[2018-12-04] MEDS: SOLU-MEDROL IV SCH ×3 (01:25→20:44)
[2018-12-04] MEDS: ZOSYN 3.375 GM in NS 50 ML IV SCH ×3 (01:25→11:33)
[2018-12-04] MEDS: DUONEB (A & A) INH SCH ×6 (03:30→23:09)
[2018-12-04] MEDS: VANCOMYCIN 1,200 MG in NS 250 ML IV SCH (05:45)
[2018-12-04 07:25] LABS: HEMATOCRIT 37.7 % (37.0-47.0); MCH 29.2 PG (27-31); MCHC 31.8 g/dL (33-37); MCV 91.7 FL (81-99); MPV 11.7 FL (7.4-10.4); RBC 4.11 XMIL (4.2-5.4); RDW 13.8 % (11.5-14.5); WBC 19.71 X1000 (4.8-10.8)
[2018-12-04 07:32] LABS: AGAP 10; ALBUMIN 2.5 g/dL (3.5-5.0); ALKALINE PHOSPHATASE 81 U/L (32-104); BUN 26 mg/dL (8-22); CALCIUM 7.5 mg/dL (8.8-10.2); CHLORIDE 100 mmol/L (98-107); COSMO 288; CREATININE 0.5 mg/dL (0.5-0.9); ESTIMATED GFR > 60; GLUCOSE 106 mg/dL (70-104); GOT 11 U/L (10-30); GPT 6 U/L (10-36); POTASSIUM 3.2 mmol/L (3.5-5.1); SODIUM 142 mmol/L (136-145); TCO2 32 mmol/L (25-35); TOTAL PROTEIN 5.1 g/dL (6.3-8.3)
[2018-12-04] MEDS: HUMALOG DOSE (PARKWAY) SUBQ SCH ×5 (07:50→20:55)
[2018-12-04] MEDS: NS 1,000 ML IV SCH ×2 (08:05→11:34)
[2018-12-04] MEDS: THEO-DUR PO SCH ×2 (08:23→20:45)
[2018-12-04] MEDS: ESTRACE PO SCH (08:23)
[2018-12-04] MEDS: ASPIRIN PO SCH (08:23)
[2018-12-04] MEDS: VITAMIN D PO SCH (08:23)
[2018-12-04] MEDS: LASIX PO SCH ×2 (08:23→20:44)
[2018-12-04] MEDS: NEURONTIN PO SCH ×3 (08:23→16:27)
[2018-12-04] MEDS: FISH OIL CONCENTRATE PO SCH (08:23)
[2018-12-04] MEDS: HUMALOG MIX 75/25 SUBQ SCH ×2 (08:31→16:27)
[2018-12-04] MEDS: MORPHINE IV PRN ×2 (08:31→20:58)
[2018-12-04] MEDS: NICODERM PATCH TD PRN (09:57)
[2018-12-04] MEDS ORDERED: BLISTEX MEDICATED BERRY LIP BALM TOP PRN (13:02)
[2018-12-04] MEDS: KLONOPIN PO PRN (13:16)
[2018-12-04] MEDS: CHANTIX PO SCH (14:34)
--- NOTE | 2018-12-04 18:51 | PROGRESS NOTE ---
DATE: 12/04/2018 SUBJECTIVE: Patient overall notes that she is feeling better. She is having no coughing or congestion currently. States that her breathing is much improved. PHYSICAL EXAMINATION: Temp 98.2, pulse 85, respiratory 20, BP 102/42.General: Patient is awake. She is very pleasant to talk with. No current respiratory distress. HEENT: Normocephalic. Neck: Supple. Cardiovascular: Regular rate. Chest: Clear. No wheezing currently. No crackles. Abdomen: Soft, nondistended. Extremities: Moves all extremities. ASSESSMENT: 1. Leukocytosis likely secondary to Solu-Medrol. 2. Chronic obstructive pulmonary disease with exacerbation, continues to improve. We will decrease Solu-Medrol to 40 q.12. 3. Left upper lobe pneumonia, continues to improve. 4. Acute hypoxic and hypercapnic respiratory failure, resolved. 5. Hypokalemia. 6. Chronic tobacco abuse, again discussed with patient the perils of smoking as well as ways to stop. PLAN: We will stop her vancomycin, decrease Solu-Medrol. Continue to follow. Recheck labs in the a.m. If she is stable, hopefully she can discharge home. cc: Joey Hughes MD
[2018-12-04] MEDS: OMNICEF PO SCH (20:44)
[2018-12-04] MEDS: ZOLOFT PO SCH (20:44)
[2018-12-04] MEDS: LYRICA PO SCH (20:44)
[2018-12-04 23:35] LABS: CLARITY CLEAR (CLEAR)
[2018-12-04 23:36] LABS: BILIRUBIN URINE NEGATIVE (NEGATIVE); BLOOD URINE 4+ (NEGATIVE); COLOR PINK; GLUCOSE URINE NEGATIVE (NEGATIVE); KETONE URINE NEGATIVE (NEGATIVE); LEUKOCYTES URINE NEGATIVE (NEGATIVE); NITRITE URINE NEGATIVE (NEGATIVE); PROTEIN URINE NEGATIVE (NEGATIVE); SP GRAVITY URINE 1.005; URINE SOURCE CLEAN CATCH; UROBILINOGEN URINE NORMAL
[2018-12-04 23:48] LABS: URINE BACTERIA 1+ /HFP; URINE EPITHELIAL CELLS <10 /HPF (<10); URINE RBC TNTC /HPF (<10); URINE WBC <10 /HPF (<10)
[2018-12-05] MEDS: MORPHINE IV PRN (01:00)
[2018-12-05] MEDS: DUONEB (A & A) INH SCH ×3 (03:25→12:01)
[2018-12-05 04:59] LABS: BASO# 0.01 X1000 (0.0-0.2); BASO% 0.1 % (0.0-0.8); HEMATOCRIT 35.4 % (37.0-47.0); HEMOGLOBIN 11.6 g/dL (12.0-16.0); IMM GRAN# 0.07 X1000 (0.0-0.04); IMM GRAN% 0.5 % (0.0-0.5); LYMPH# 1.96 X1000 (1.2-3.4); LYMPH% 13.3 % (20.5-51.1); MCH 30.1 PG (27-31); MCHC 32.8 g/dL (33-37); MCV 91.7 FL (81-99); MONO# 0.73 X1000 (0.11-0.59); MPV 11.4 FL (7.4-10.4); NEUT# 11.92 X1000 (1.4-6.5); NEUT% 81.1 % (42.2-75.2); PLT 309 X1000 (130-400); RBC 3.86 XMIL (4.2-5.4); RDW 13.7 % (11.5-14.5); WBC 14.69 X1000 (4.8-10.8)
[2018-12-05 05:02] LABS: AGAP 10; ALBUMIN 2.6 g/dL (3.5-5.0); ALKALINE PHOSPHATASE 74 U/L (32-104); BUN 24 mg/dL (8-22); CALCIUM 8.1 mg/dL (8.8-10.2); CHLORIDE 98 mmol/L (98-107); CK PROFILE 25 U/L (24-173); COSMO 296; CREATININE 0.6 mg/dL (0.5-0.9); ESTIMATED GFR > 60; GLUCOSE 253 mg/dL (70-104); GOT 9 U/L (10-30); GPT 6 U/L (10-36); POTASSIUM 3.6 mmol/L (3.5-5.1); SODIUM 142 mmol/L (136-145); TCO2 34 mmol/L (25-35); TOTAL PROTEIN 4.7 g/dL (6.3-8.3)
[2018-12-05 05:27] LABS: INR 0.95; PROTIME 13.2 Seconds (11.0-16.0); PTT 28.2 Seconds (22.3-41.8)
[2018-12-05] MEDS: HUMALOG DOSE (PARKWAY) SUBQ SCH ×2 (06:42→11:05)
--- NOTE | 2018-12-05 08:02 | Diag Imaging Result Doc PS360 ---
EXAM: CHEST-PORTABLE - 12/05/2018 HISTORY: sepsis protocol TECHNIQUE: Portable chest COMPARISON: 12/01/2018 FINDINGS: There has been some overall interval decrease in opacity at the left base. There is persistent left lower lung volume loss with atelectasis along left heart border. There is a possible small left pleural effusion. There has been possible development of a small amount of infiltrate at the right upper lobe. There is no pneumothorax identified. IMPRESSION: Some overall decrease in left basilar opacity compared to prior. Atelectasis along left heart border, and possible small left pleural effusion. Possible small right upper lobe infiltrate. Electronically signed by Wai Carrillo 12/05/2018 7:59 AM
[2018-12-05] MEDS: HUMALOG MIX 75/25 SUBQ SCH (10:59)
[2018-12-05] MEDS: PERCOCET-10 PO PRN (10:59)
[2018-12-05] MEDS: SOLU-MEDROL IV SCH (11:01)
[2018-12-05] MEDS: FISH OIL CONCENTRATE PO SCH (11:01)
[2018-12-05] MEDS: NEURONTIN PO SCH (11:02)
[2018-12-05] MEDS: LASIX PO SCH (11:02)
[2018-12-05] MEDS: THEO-DUR PO SCH (11:02)
[2018-12-05] MEDS: OMNICEF PO SCH (11:03)
[2018-12-05] MEDS: VITAMIN D PO SCH (11:03)
[2018-12-05] MEDS: ESTRACE PO SCH (11:04)
[2018-12-05] MEDS: CHANTIX PO SCH (11:04)
[2018-12-05] MEDS: ASPIRIN PO SCH (11:04)
[2018-12-05 12:52] VITALS: BP 132/65
--- NOTE | 2018-12-05 16:48 | DISCHARGE SUMMARY ---
ADMISSION DATE: 11/30/2018 DISCHARGE DATE: 12/05/2018 DISCHARGE DIAGNOSES: 1. Leukocytosis. 2. Acute chronic obstructive pulmonary disease exacerbation. 3. Left upper lobe pneumonia. 4. Acute hypoxic hypercapnic. 5. Respiratory failure. HOSPITAL COURSE: Briefly, this is actually a hospice patient, 62, with COPD. She is on home O2. She presents with 10 days of cough. Chest x-ray, there was concern over postobstructive pneumonia but that looks improved. In any case, she continued to clinically improve and she was felt stable for discharge by the . She came in for difficulty breathing. Her saturations were 92% on 3 L. Her white count went down to 14,000. She had no further wheezing, and she was felt stable for discharge on the . DISCHARGE MEDICATIONS: Lyrica 75 at bedtime, Zoloft 50 at bedtime, albuterol nebs, aspirin 81 daily, vitamin D3 1000 daily, Klonopin 1 b.i.d., estradiol 1 daily, Lasix 40 b.i.d., Neurontin 600 t.i.d., fish oil daily, Percocet 10 1 p.o. q.6 p.r.n. pain, Senokot 1 b.i.d., Homero-Dur 300 b.i.d., ProAir p.r.n., Omnicef 300 b.i.d., prednisone taper. I am going to switch her to DuoNebs. She is not on Spiriva. We will do those q.4 hours. DISCHARGE CONDITION: Stable. FOLLOWUP: Follow up with PCP. I think she is going to get under the care of a Daniel Wall with hospice. TIME SPENT AT DISCHARGE: 32 minute discharge. cc: Collins Merritt MD
== END 2018-12-05 14:30 | disposition hospice, home (50) | DRG 193 ==
LOC: P.ED 15:29 → SUATTDRO 20:49 → P.ICU 20:49 → P.MEDSURG 12-03 17:57
PROVIDERS: ATTEND Internal Medicine
CPT/HCPCS: 71010; 71020; 71045; 71046; 80053; 80202; 81001; 82550; 82805; 82948; 83605; 83735; 84484; 85025; 85027; 85610; 85730; 87040; 87070; 87205; 90686; 94640; 94667; 94668; 94761; 94799; 96365; 96367; 96375; 99285; 99291; A9270; J1815; J2270; J2405; J2543; J2920; J2930; J3370; J7030; J7050; XXXXX